=== PATIENT | female | born 1950 | race Caucasian/White ===

== ENCOUNTER 2019-02-03 16:39 | Emergency (ER) | payer OTHER ==
[~2019-02-03] VITALS: Ht 162.6 cm; Wt 90.7 kg
[2019-02-03] MEDS ORDERED: NORCO 5-325 TA1 EACH PO (17:36)
[2019-02-03] MEDS ORDERED: MOBIC7.5 MG PO (17:36)
[2019-02-03 18:29] VITALS: BP 139/59
== END 2019-02-03 18:30 | disposition home or self-care (01) ==
LOC: ER 16:39
DX: S63.692A Other sprain of right middle finger, initial encounter (principal); S63.694A Other sprain of right ring finger, initial encounter; S63.696A Other sprain of right little finger, initial encounter; W01.0XXA Fall on same level from slipping, tripping and stumbling without subsequent striking against object, initial encounter; Y93.89 Activity, other specified; Y92.89 Other specified places as the place of occurrence of the external cause; Y99.8 Other external cause status

== ENCOUNTER 2019-10-31 20:03 | Inpatient (IN) | payer OTHER ==
[~2019-10-31] VITALS: Ht 172.7 cm; Wt 90.7 kg
[~2019-10-31 20:03] MED LIST: MOBIC7.5 MG PO; NORCO 5-325 TA1 EACH PO
[2019-10-31 20:45] LABS: ABSOLUTE NEUTROPHILS 10.1 thou/uL (1.4-8.2); BASOPHILS 0.6 % (0.0-2.0); HEMATOCRIT 42.7 % (37.0-47.0); HEMOGLOBIN 13.8 gm/dL (12.0-15.0); LYMPHOCYTES 3.3 % (24.0-44.0); MCH 30.6 pg (26.0-34.0); MCHC 32.3 g/dL (28.0-37.0); MCV 94.9 fL (80.0-100.0); MONOCYTES 7.2 % (1.0-8.0); PLATELET COUNT 217 thou/uL (150-400); POLYS 88.9 % (36.0-66.0); RDW 14.7 % (10.5-14.5); WBC 11.4 thou/uL (4.0-11.0)
[2019-10-31 20:52] LABS: CALCIUM 8.8 mg/dL (8.5-10.1); CREATININE 2.7 mg/dL (0.6-1.0); POTASSIUM 4.3 mmol/L (3.5-5.1)
[2019-10-31 20:54] LABS: BE(vivo) -7.8 mmol/L (-2 to +3); HCO3 19.1 mmol/L (22.0-26.0); PCO2 44.2 mmHg (35.0-45.0); PO2 62.7 mmHg (80.0-100.0); pH 7.254 (7.360-7.450); sO2 88.5 % (92.0-98.0)
[2019-10-31 20:59] LABS: AMP/METHAMP Negative (Negative); BARBITURATES Negative (Negative); BENZODIAZEPINES Negative (Negative); COCAINE Negative (Negative); METHADONE Negative (Negative); OPIATES POSITIVE (Negative); PCP Negative (Negative)
[2019-10-31 21:09] LABS: APTT 28.7 Seconds (24.5-32.8); PROTIME 10.7 Seconds (9.3-11.4)
[2019-10-31 21:22] LABS: TOTAL BILIRUBIN 0.5 mg/dL (<0.1-1.0)
[2019-10-31 21:23] LABS: ALBUMIN 3.2 g/dL (3.4-5.0); TOTAL PROTEIN 7.3 g/dL (6.4-8.2); TROPONIN-I 0.34 ng/mL (<0.06)
[2019-11-01] VITALS (19 sets, daily range): BP systolic 89–170; BP diastolic 37–93
[2019-11-01] MEDS ORDERED: QUETIAPINE FUM200 MG PO (00:16)
[2019-11-01] MEDS ORDERED: FLEXERIL PO (00:17)
[2019-11-01] MEDS ORDERED: NEURONTIN100 MG PO (00:18)
[2019-11-01] MEDS ORDERED: LEXAPRO20 MG PO (00:29)
[2019-11-01] MEDS ORDERED: OXYMORPHONE HC7.5 MG PO ×2 (00:30)
[2019-11-01] MEDS ORDERED: SIMVASTATIN80 MG PO (00:33)
[2019-11-01 03:04] LABS: URINE BILIRUBIN NEGATIVE (Negative); URINE BLOOD 2+ (Negative); URINE CLARITY CLEAR; URINE COLOR YELLOW; URINE GLUCOSE-RANDOM* NEGATIVE (Negative); URINE KETONES NEGATIVE (Negative); URINE LEUKOCYTES NEGATIVE (Negative); URINE NITRITE NEGATIVE (Negative); URINE PROTEIN (DIPSTICK) NEGATIVE (Negative); URINE SPECIFIC GRAVITY 1.025 (1.005-1.035); URINE UROBILINOGEN 0.2 E.U./dl (0.2-1.0)
[2019-11-01 03:10] LABS: HEMATOCRIT 37.7 % (37.0-47.0); HEMOGLOBIN 12.2 gm/dL (12.0-15.0); MCH 30.6 pg (26.0-34.0); MCHC 32.2 g/dL (28.0-37.0); RBC 3.97 mil/uL (4.20-5.00); RDW 14.5 % (10.5-14.5); WBC 10.7 thou/uL (4.0-11.0)
[2019-11-01 03:19] LABS: SQUAMOUS 4-10 Moderate /LPF (0-3)
[2019-11-01 03:20] LABS: CRYSTALS None Seen /LPF (None Seen); HYALINE CASTS 0-3 Few /LPF (None Seen); MUCUS 0-3 Light strn/LPF (None Seen); URINE WBC 6-15 Few /HPF (0-5)
[2019-11-01 03:24] LABS: CALCIUM 8.2 mg/dL (8.5-10.1); CREATININE 2.5 mg/dL (0.6-1.0); POTASSIUM 4.7 mmol/L (3.5-5.1); TROPONIN-I 0.16 ng/mL (<0.06)
--- NOTE | 2019-11-01 06:21 | NUR ---
PT ARRIVED VIA CART FROM ER. PT IS AROUSABLE WITH PAIN STIMULATION. ADMISSION COMPLETED AND CARE PLAN INITIATED. CONSULTS CALLED IN TO BOTH ORTHO AND RENAL. PT IS A/0 BUT CAN SPEAK A FEW WORDS AT THIS POINT. SAYS SHE IS A/0X4 BASELINE. FOLLOWING POC WITH IVF GTT AND RESPIRATORY TREATMENTS.
--- NOTE | 2019-11-01 08:50 | EKG ---
[place] [address] [place] [address] ELECTROCARDIOGRAM REPORT Name: SUE VILLARREAL Room #: 237-[facility] IN ..#: [id number] Admission: 10/31/19 Attend Phys: Seun Duval MD Discharge: Date of : 54 Report #: [id number] THIS REPORT FOR: //name// [facility] ED Test Date: 2019-10-31 Test Time: 20:07:21 Pat Name: SUE VILLARREAL Department: Room: [facility] Gender: F Fabrication Specialist: [facility] : 1950 Requested By: Carmelo Rodríguez Order Number: [id number] MD: Martin Baker Measurements Intervals [place] Rate: 91 P: 52 PA: 153 QRS: -71 QRSD: 146 T: 75 QT: 379 QTc: 467 Interpretive Statements Sinus rhythm Left bundle branch block No previous ECG available for comparison Electronically Signed On 11-01-2019 8:50:16 [employer] by Martin Baker [email or web address] <ELECTRONICALLY SIGNED> By: Martin Baker MD, [facility] 11/01/19 0850 06 06 Martin Baker MD, FACC /EPI
--- NOTE | 2019-11-01 09:50 | NUR ---
VASCULAR ACCESS CONSULTED TO PLACE A MIDLINE- SPOKE WITH DR. SOSA AND HE PREFERED A CENTRAL ACCESS FOR THIS PATIENT. THE PATIENT IS CONFUSED AND A CONSENT PER MEDICAL NECESSITY WAS OBTAINED HIS WAS EMERGENT PER DR. SOSA REQUEST. THE RIGHT IJ VEIN WAS WIDLEY PATENT. A #6F TRIPLE LUMEN POWER INJECTABLE JACC CATHETER WAS PLACED PER HOSPITAL POLICY AFTER A BEDSIDE TIMEOUT WAS COMPLETED. LINE WAS 25CM AND ADVANCED WITHOUT DIFFICULTY. A STAT CHEST XRAY WAS ORDERED FOR CONFIRMATION
--- NOTE | 2019-11-01 10:09 | NUR ---
Nutrition: pt admit to ICU with AMS. Found unresponsiveness and Narcan administered. Consult received due to NPO status, day 1. Recent fall with wrist fracture. CXR showing atelectasis, pneumonitis. Pt alert during time of visit but confused. Reports usual appetite is ok and a steady weight gain per hx however current weight is around reported usual, BMI 30. RD will monitor for timely diet advance but place as low nutrition risk for now.
--- NOTE | 2019-11-01 12:49 | NUR ---
PT ADMITTED RELATED TO AMS. CM REVIEWED CHART AND SPOKE WITH CARE TEAM. CM MET WITH PT AT BEDSIDE THIS DAY. PT IS A&O X4. CM ROLE INTRODUCED. PT INDICATED SHE AND SPOUSE RECENTLY MOVED HERE FROM [facility]. THEY INDICATED THAT THEY LIVE IN A HOUSE WITH 2 STEPS TO ENTER AND NO STEPS INSIDE. PT INDICATED SHE HAD BEEN INDEPENDENET WITH GAIT AND ADLS MANAGER QUANTITATIVE ALTHOUGH CANE IS MENTIONED IN COMPUTER. PT INDICATED SHE DOESN'T HAVE A PCP HERE YET. CM PROVIDED PT AND SPOUSE LIST OF PCPS HERE AT [facility]. PT AND SPOUSE INDICATED THAT THEY ANTICIPATE PT RETURNING HOME ONCE MEDICALLY STABLE. CM TO FOLLOW INDICATED WITH DC PLANNING.
--- NOTE | 2019-11-01 15:08 | NUR ---
ASSESSMENTS AND INTERVENTIONS DOCCUMENTED. PATIENT STILL CONFUSED WITH ORIENTATION. IV TEAM PAGED, CENTRAL LINE INSERTED AND VERFIED. IV FLUIDS GOING PER ORDER. RN ROUNDING ON PATIENT AND PATIENT REMOVING CENTRAL LINE DRESSING. LANDSCAPE NURSERYMAN PAGED, IV FLUIDS STOPPED AND XRAY ORDERED TO RE CONFIRM PLACEMENT. PATIENT TRANSFERRED TO ROOM 363 AT 1450.
--- NOTE | 2019-11-01 16:04 | NUR ---
patient transfere from icu at 1520. a/o 2-3. confused. puted out central line out. bed alram on. will homer do.
[2019-11-02 04:41] VITALS: BP 149/81
[2019-11-02 06:12] LABS: ALBUMIN 2.8 g/dL (3.4-5.0); CALCIUM 8.7 mg/dL (8.5-10.1); PHOSPHORUS 2.2 mg/dL (2.5-4.9); POTASSIUM 4.5 mmol/L (3.5-5.1)
[2019-11-02 06:30] LABS: CREATININE 1.1 mg/dL (0.6-1.0)
--- NOTE | 2019-11-02 06:44 | NUR ---
PATIENT IS ADVANCING SLOWLY IN HER PLAN. VITAL SIGNS STABLE WITH PATIENT HAVING NO COMPLAINTS OF NAUSEA. PATIENT DID COMPLAIN OF MINIMAL PAIN IN LEFT WRIST AND BACK. PATIENT IS CONFUSED BUT HER MENTATION SEEMS TO BE SLOWLY IMPROVING. SHE IS STILL UNABLE TO CALL APPROPRIATELY FOR NEEDS OR PARTICIPATE IN CARE. BREATHING STABLE ON LOW LEVEL OXYGEN EVIDENCED BY ASSESSMENT AND SPOT OXYGENATION CHECKS. GOOD OUTPUT THROUGH SOARES CATHETER, CONTINUE PLAN OF CARE.
[2019-11-02 07:11] VITALS: BP 170/82
--- NOTE | 2019-11-02 09:34 | 2DMMODE ---
[facility] [address] [place] [address] 2 D/M-MODE ECHOCARDIOGRAM Name: SUE VILLARREAL Room #: 362-P ADM IN M.R.#: [id number] Admission: 10/31/19 Attend Phys: Tawnya Spicer Discharge: Date of : 54 Report #: [id number] THIS REPORT FOR: //name// APPROVED REPORT Study performed: 11/02/2019 08:10:57 EXAM: Comprehensive 2D, Doppler, and color-flow Echocardiogram Patient Location: Bedside Room #: 362 Status: routine BSA: 2.04 HR: 80 bpm BP: 170/82 mmHg Rhythm: LBBB Other Information Study Quality: Good Indications Elevated troponin, respiratory distress, LBBB. 2D Dimensions RVDd: 40.97 mm IVSd: 12.25 (7-11mm) LVOT Diam: 19.77 (18-24mm) LVDd: 55.19 mm PWd: 11.71 (7-11mm) Ascending Ao: 33.43 (22-36mm) LVDs: 42.13 (25-40mm) Aortic Root: 31.27 mm Volumes Left Atrial Volume (Systole) Single Plane 4CH: 66.33 mL Single Plane 2CH: 91.76 mL LA ESV Index: 40.00 mL/m2 Aortic Valve AoV Peak Shayan.: 2.14 m/s AO Peak Gr.: 18.29 mmHg LVOT Max P.28 mmHg LVOT Max V: 1.44 m/s MADI Vmax: 2.06 cm2 Mitral Valve E/A Ratio: 0.7 MV Decel. Time: 173.96 ms MV E Max Shayan.: 0.92 m/s [facility] [address] [place] [address] 2 D/M-MODE ECHOCARDIOGRAM Name: SUE VILLARREAL Valerie Room #: 362-P [facility] IN [facility]#: [id number] Admission: 10/31/19 Attend Phys: Tawnya Spicer Discharge: Date of : 54 Report #: [id number] MV A Shayan.: 1.39 m/s MV PHT: 50.45 ms IVRT: 101.50 ms Pulmonary Vein P Vein S: 0.87 m/s P Vein A: 0.35 m/s P Vein D: 0.39 m/s P Vein A Dur.: 83.0 msec P Vein S/D Ratio: 2.23 Tricuspid Valve TR Peak Shayan.: 2.88 m/s RAP Estimate: 10.00 mmHg TR Peak Gr.: 33.09 mmHg PA Pressure: 43.00 mmHg Left Ventricle The left ventricle is normal size. Borderline concentric left ventricular hypertrophy. Left ventricular systolic function is normal. LVEF is 50-55%. Mild diastolic dysfunction is present (impaired relaxation pattern). Right Ventricle The right ventricle is normal size. The right ventricular systolic function is normal. Atria Left atrium is mildly dilated. Right atrium is mildly dilated. Aortic Valve The aortic valve is normal in structure. Trace aortic regurgitation. There is no aortic valvular stenosis. Mitral Valve The mitral valve is normal in structure. Mild to moderate mitral regurgitation. No evidence of mitral valve stenosis. Tricuspid Valve The tricuspid valve is normal in structure. Mild to moderate tricuspid regurgitation. Estimated PAP is 40mmHg. Pulmonic Valve The pulmonary valve is normal in structure. Trace pulmonic regurgitation. Great Vessels The aortic root is normal in size. The ascending aorta is normal in [facility] [address] [place] [address] 2 D/M-MODE ECHOCARDIOGRAM Name: SUE VILLARREAL Valerie Room #: 362-P [facility] IN .R.#: [id number] Admission: 10/31/19 Attend Phys: Tawnya Spicer Discharge: Date of : 54 Report #: [id number] size. IVC is normal in size and collapses >50% with inspiration. Pericardium There is no pericardial effusion. <Conclusion> The left ventricle is normal size. Borderline concentric left ventricular hypertrophy. Left ventricular systolic function is normal. Mild diastolic dysfunction is present (impaired relaxation pattern). The right ventricle is normal size. Left atrium is mildly dilated. Trace aortic regurgitation. Mild to moderate mitral regurgitation. Mild to moderate tricuspid regurgitation. Estimated PAP is 40mmHg. <ELECTRONICALLY SIGNED> By: Mike Renee MD 11/02/19932 2 2 Mike Renee MD /INF
--- NOTE | 2019-11-02 12:50 | HC ---
[facility] [place] [address] CONSULTATION Name: SUE VILLARREAL Room #: 362-P ADM IN M.R.#: [id number] Admission: 10/31/19 Attend Phys: Seun Duval MD Discharge: Date of : 54 Report #: [id number] THIS REPORT FOR: //name// CC: Seun Duval [facility] physician/PCP DATE OF SERVICE: 11/01/2019 CHIEF COMPLAINT: Left distal radius fracture. HISTORY OF PRESENT ILLNESS: This 69-year-old female fell injuring the left wrist. At the time of my evaluation, she is quite confused and does not recall the exact nature of this event. She seems to be a bit confused about what happened and where she is and may have some other neurologic problems. She did bump her head and has some other areas of minor bruising as a result of the fall. Objectively, she seems to have good movement and strength in the right upper extremity without deformity. There is minor abrasions and bruising at the right distal forearm. The left upper extremity is well protected in a sugar-tong fiberglass splint holding the distal forearm, wrist and hand in neutral position. She has good movement of the digits and neurologic status. There is normal alignment and the splint seems to be normal. She does complain of some discomfort with any movement or palpation about the wrist. She seems to have good movement at the neck and back and normal movement of both lower extremities without evidence of injury. X-rays of the left hand and wrist reveal a very slightly impacted fracture, which transverse and crosses the distal metaphyseal region. The fracture does not seem to enter the joint and alignment of the joint surface appears to be acceptable. No other significant abnormalities are noted. I have discussed these findings with the patient explaining that the fracture at this point is in good position and may do nicely with conservative nonsurgical management; however, we have also discussed the option of surgical repair with locking volar plate. At this time, she is a bit confused and I think we probably need to await family input and a more complete general medical evaluation before considering any surgery. At this point, she is well protected in her current splint. I think we will probably proceed with short arm cast application and continue that approach if possible. If there is evidence of fracture displacement or instability, then we may reconsider the option of surgical repair. <ELECTRONICALLY SIGNED> By: Mike Mayo MD 11/02/19 1250 1034 2139 Mike Mayo MD /nt
--- NOTE | 2019-11-02 14:55 | NUR ---
SW reviewed chart and spoke with nursing and attending physician. Pt transferred to 3W from 4W and is progressing towards goals for discharge. Discharge home is anticipated for tomorrow. No discharge needs identified at this time. SW is available should needs arise.
[2019-11-02 15:37] VITALS: BP 169/85
--- NOTE | 2019-11-02 18:37 | NUR ---
1240 new cast placed on pt left arm by . capillary refill less than 3seconds. Hands warm and dry. sensation present. pt states little discomfort.
--- NOTE | 2019-11-02 18:39 | NUR ---
pt progressing towards care
[2019-11-02 19:11] VITALS: BP 181/97
[2019-11-03 00:34] VITALS: BP 180/110
--- NOTE | 2019-11-03 00:47 | NUR ---
PT ALERT, WATCHING TV. PT IMPULSIVELY GETS UP TO GO TO RESTROOM. SBA WITH AMBULATION. PT REPORTS DISCOMFORT WITH NEW L ARM CAST, PRN TYELENOL AND ELEVATION PROVIDED. PRN FOR ANXIETY PROVIDED. SNACK PROVIDED BLE EDEMA, L HAND FINGERS EDEMA, POSITIVE CIRCULATION. BP ELEVATED AND ROLL ICER NOTIFIED PRN ORDER OBTAINED. PT REFUSED HEPARIN.
[2019-11-03 02:09] VITALS: BP 140/100
[2019-11-03 03:08] VITALS: BP 140/100
[2019-11-03 07:40] VITALS: BP 178/93
[2019-11-03] MEDS ORDERED: CEFDINIR300 MG PO (09:47)
[2019-11-03] MEDS ORDERED: SEROQUEL 100 M100 M1 PO (09:47)
[2019-11-03] MEDS ORDERED: NORVASC5 MG PO (09:47)
[2019-11-03 12:00] VITALS: BP 178/93
[2019-11-03 13:08] LABS: TRICYCLIC (TCA) CONFIRMATION Positive ng/mL (Cutoff=100)
--- NOTE | 2019-11-03 14:17 | NUR ---
1417 pt discharge intraction given to pt and . Education done on cast care, signs and symptoms of compartment syndrome. pt and verbalize understanding. All pt belongings given to pt and updated on homehealth agency phone number.
--- NOTE | 2019-11-08 08:35 | HC ---
[facility] [place] [address] CONSULTATION Name: SUE VILLARREAL Room #: 362-P [facility] IN M.R.#: [id number] Admission: 10/31/19 Attend Phys: Seun Duval MD Discharge: 11/03/19 Date of : 54 Report #: [id number] THIS REPORT FOR: //name// CC: Seun Duval [facility] physician/PCP DATE OF SERVICE: 11/01/2019 REASON FOR THE CONSULTATION: Acute kidney injury. REASON FOR THE PRESENTATION: Fall and mental status issues. HISTORY OF PRESENT ILLNESS: I am not really sure how accurate the information the patient is giving me. She is a 69-year-old. She tells me that she moved from [place] recently. She presented with mental status changes, confusion. reported that he found her unconscious. The patient has also had repeated episodes of falls. She was found to be some element with brief periods of waking up with stimulation. Initial evaluation revealed a white blood cell count of 11.4, a pH of 7.25 with normal lactate. She had a creatinine of 2.7 on her presentation. She tells me that she has never been told that she had kidney problems. AST was mildly elevated. The patient was admitted to be further evaluated. I noticed that the patient is maintained on narcotics. She is also maintained on high dose Neurontin. She takes Seroquel and Lexapro on top of Flexeril. The patient was admitted to the Intensive Care Unit because of hypotension. I was asked to evaluate the patient and assist with her acute kidney injury. PAST MEDICAL HISTORY: 1. Depression. 2. Arthritis, for which she was taking meloxicam. SOCIAL HISTORY: Unable to obtain given the patient's current mental status. MEDICATIONS: 1. Seroquel. 2. Gabapentin. 3. Meloxicam. REVIEW OF SYSTEMS: Unobtainable given the patient's current mental status. PHYSICAL EXAMINATION: GENERAL: She is confused. VITAL SIGNS: Blood pressure is marginally on the low side at 101/50, temperature is 36.7, pulse rate is 75. HEAD AND NECK: No jugular venous distention. CHEST: No crackles. [address] [address] CONSULTATION Name: SUE VILLARREAL Valerie Room #: 362-P [facility] IN [facility].#: [id number] Admission: 10/31/19 Attend Phys: Seun Duval MD Discharge: 11/03/19 Date of : 54 Report #: [id number] CARDIOVASCULAR: Regular with no rub detected. ABDOMEN: Soft, nontender. LOWER EXTREMITIES: No edema. LABORATORY DATA: Laboratory values reviewed. White blood cell count on presentation was 11.4, sodium was 136, potassium was 4.3, BUN was 52, creatinine was 2.7. Chest x-ray with bibasilar infiltrates. Hand x-ray with an impacted distal radial fracture on the left side. Head CT with no acute process. Abdomen and pelvis CT with adnexal masses. ASSESSMENT AND PLAN: 1. Acute kidney injury due to hypotension and nonsteroidal anti-inflammatory medications. 2. Mental status changes due to Neurontin and current psychotropic medications. 3. Continue IV fluid. 4. Basic acute kidney injury workup. 5. Avoid nonsteroidals. 6. Acute mental status changes as per the primary team. <ELECTRONICALLY SIGNED> By: Franco Avila MD 11/08/19 0835 0924 1322 Franco Avila MD /nt
== END 2019-11-03 15:34 | disposition home or self-care (01) | DRG 682 ==
LOC: ER 20:03 → EROBS 22:25 → ICU 22:25 → 3W 11-01 15:01
PROVIDERS: Emergency Medicine; Hospitalist; Nurse Practitioner Family; ADMIT Hospitalist
PROC: 02HV33Z Insertion of Infusion Device into Superior Vena Cava, Percutaneous Approach (ICD-10-PCS; principal; 2019-11-01)
PROC: 2W3FX2Z Immobilization of Left Hand using Cast (ICD-10-PCS; 2019-11-02)
DX: N17.9 Acute kidney failure, unspecified (principal); J96.01 Acute respiratory failure with hypoxia; G93.41 Metabolic encephalopathy; S52.502A Unspecified fracture of the lower end of left radius, initial encounter for closed fracture; F32.9 Major depressive disorder, single episode, unspecified; G89.29 Other chronic pain; M54.9 Dorsalgia, unspecified; E78.5 Hyperlipidemia, unspecified; F17.210 Nicotine dependence, cigarettes, uncomplicated; M19.90 Unspecified osteoarthritis, unspecified site; I95.9 Hypotension, unspecified; M54.2 Cervicalgia; Z71.6 Tobacco abuse counseling; Z79.1 Long term (current) use of non-steroidal anti-inflammatories (NSAID); Z79.899 Other long term (current) drug therapy; W18.39XA Other fall on same level, initial encounter; Y93.89 Activity, other specified; Y92.89 Other specified places as the place of occurrence of the external cause; Y99.8 Other external cause status
CPT/HCPCS: 10879

== ENCOUNTER → 2020-04-17 | Outpatient (CLI) | payer OTHER ==
[~2020-04-17] MED LIST changes: +CEFDINIR300 MG PO; +FLEXERIL PO; +LEXAPRO20 MG PO; +NEURONTIN100 MG PO; +NORVASC5 MG PO; +OXYMORPHONE HC7.5 MG PO; +QUETIAPINE FUM200 MG PO; +SEROQUEL 100 M100 M1 PO; +SIMVASTATIN80 MG PO
== END ==
LOC: RAD 16:40
PROVIDERS: ATTEND Internal Medicine
DX: S22.32XA Fracture of one rib, left side, initial encounter for closed fracture (principal); J98.11 Atelectasis; X58.XXXA Exposure to other specified factors, initial encounter; Y93.89 Activity, other specified; Y92.89 Other specified places as the place of occurrence of the external cause; Y99.8 Other external cause status

== ENCOUNTER 2020-07-20 19:06 | Emergency (ER) | payer OTHER ==
[~2020-07-20] VITALS: Ht 165.1 cm; Wt 95.3 kg
[2020-07-20] MEDS ORDERED: oxycodone PO (19:20)
[2020-07-20] MEDS ORDERED: GABAPENTIN100 MG PO (19:24)
[2020-07-20 20:29] VITALS: BP 142/88
== END 2020-07-20 21:18 | disposition home or self-care (01) ==
LOC: ER 19:06
DX: M54.2 Cervicalgia (principal); Z79.899 Other long term (current) drug therapy; Y04.2XXA Assault by strike against or bumped into by another person, initial encounter; Y93.89 Activity, other specified; Y92.89 Other specified places as the place of occurrence of the external cause; Y99.8 Other external cause status